=== PATIENT | male | born 1960 | race Caucasian/White ===

== ENCOUNTER 2024-03-15 04:52 | Emergency (ER) | payer OTHER, SELFPAY ==
[2024-03-15 04:54] VITALS: BP 166/98
[2024-03-15 05:38] VITALS: BP 151/95; BMI 25.0
--- NOTE | 2024-03-15 05:40 | EDRN ---
Pt says he developed poison vanessa on Friday. Friday morning he woke with swelling around 1 eye. This morning pt woke with swelling around both eyes. Arms, legs and eyes are itchy. Pt put lotion on his legs for itching. Pt did not take any
medications for symptoms. Pt speaks in full sentences. No sob, throat swelling.
[2024-03-15 07:02] VITALS: BP 149/96
--- NOTE | 2024-03-15 07:26 | ED.GENMED ---
History of Present Illness
General
Chief Complaint: Skin Problem
Source: patient
Exam Limitations: none
Time Seen by Provider: 03/15/24 06:32
Nursing documentation reviewed up to this point in time: agreed with
Travel History
Have you had any contact with someone who has COVID-19?: No
Do you have any symptoms of coronavirus? Fever > 100 degrees, chills, cough, shortness of breath, sore throat, loss of taste or smell, muscle aches, or headache?: No
History of Present Illness
History of Present Illness:
The patient is a pleasant 63-year-old man with a past medical history of high blood pressure who reports that he was working out in his garden 5 days ago and developed an itchy rash on both legs. Patient reports he thinks it is poison car[place]. Patient
grew concerned when he woke up yesterday with swelling of his left eyelids. When he woke up today, he had swelling of his right eyelids as well. Patient denies tightness of the throat, difficulty swallowing, shortness of breath or wheezing.
Patient reports he just feels very itchy around his eyes and legs. Patient admits that he was gardening with shorts on and should have worn pants.
Past History
Past History
ED Past Medical History: HTN
ED Past Surgical History: None
Social History
Tobacco: Non-smoker
Alcohol: None
Drug: None
Personal:
Living: with family
Employment: Employed
Family History
Family History: Other (Noncontributory)
Review of Systems
Review of Systems
Allergies reviewed?: Yes
All Other Systems: ROS reviewed and negative except as documented in HPI and ROS
Constitutional: Reports no symptoms
EENT: Reports other
Respiratory: Reports no symptoms
Cardiac: Reports no symptoms
ABD/GI: Reports no symptoms
: Reports no symptoms
Musculoskeletal: Reports no symptoms
Skin: Reports itching, rash and other
Neurological: Reports no symptoms
Endocrine: Reports no symptoms
Hematologic/Lymphatic: Reports no symptoms
Psychiatric: Reports no symptoms
Phy Exam
Physical Exam
Physical Exam:
Physical Exam
General: no apparent distress, not acutely ill
Neck: supple. No pharyngeal erythema or exudate. Significant swelling of lower eyelids bilaterally. Mild swelling of upper eyelids bilaterally. No lip or tongue swelling
Heart: s1/s2 regular rate and rhythm, no murmur. equal radial pulses.
Lungs: no acute respiratory distress. clear bilaterally
Abdomen: normal bowel sounds. not tender. no CVAT
Neuro: alert and oriented. no focal neurological deficits
Skin: Papular rash on anterior bilateral lower legs which appears to look like a contact dermatitis such as poison carlotta or poison [place].
Psychiatric: well kept. interactive and cooperative
Extremities: no edema. no calf tenderness. negative homans. good distal pulses
Course
Orders/Labs/Results
Orders:
Orders
03/15/24 07:24
Diphenhydramine [Benadryl] 50 mg PO NOW STA
03/15/24 07:25
Prednisone [Deltasone] 40 mg PO NOW STA
Vital Signs
Initial and Last Documented VS:
Initial Vital Signs
Temp Pulse Resp BP Pulse Ox
97.4 F 70 22 166/98 98
03/15/24 04:54 03/15/24 04:54 03/15/24 04:54 03/15/24 04:54 03/15/24 04:54
Last Documented Vital Signs
Temp Pulse Resp BP Pulse Ox
97.4 F 77 16 149/96 98
03/15/24 04:54 03/15/24 07:02 03/15/24 07:02 03/15/24 07:02 03/15/24 07:02
MDM/Problems Addressed
Differential Diagnosis Includes:
Acute contact dermatitis, angioedema, cellulitis
MDM/Problems Addressed:
Patient presents with acute itchy rash and acute swelling of bilateral eyelids
Chronic conditions affecting care: HTN
Acute Exacerbation and/or Progression of Chronic Illness: HTN
*Pulse Oximetry
Patient hypoxic: no
*Critical Care Note
Total Time (30-74mins, 75-104mins- exclusive of procedures): Not Applicable
Update Note
Update Note:
8:30 AM patient's eyelid swelling is significantly improved. He still has no sign of uvular swelling or pulmonary symptoms. Patient encouraged to take Benadryl every 6-8 hours while awake for the next several hours to days until symptoms go away.
Patient will be also started on steroids
ED Attending Note
-
Portions of this chart may have been created with voice recognition software.� Occasional wrong word or��sound alike� substitutions may have occurred due to the inherent limitations of voice recognition software.
Discharge Plan
Departure
Patient Disposition: Home (Routine Discharge)
Date of Disposition: 03/15/24
Time of Disposition: 08:47
Patient with high blood pressure during this ER visit?: Yes
Condition: Good
Covid-19: Not Applicable
Discharge Problem:
Allergic dermatitis due to poison carlot[place], Acute urticaria
Instructions: Allergic Reaction ED, Poison [place], Poison [place], Poison [place] [facility], BLOOD PRESSURE
Prescriptions:
New
prednisone 20 mg tablet
20 mg PO DAILY 5 Days Qty: 5 0RF
No Action
lisinopril 30 mg Tablet
30 mg PO DAILY
Referrals:
Fish Lee MD [Family Provider] -
Activity Restrictions/Additional Instructions:
Take 25 mg of Benadryl for any lingering itchiness or rash every 6-8 hours while awake. You can buy the Benadryl [id number] at a pharmacy. Do not drive or drink alcohol while using Benadryl. You should start the prednisone prescription
tomorrow morning.
Interventions
Interventions:
*Risk Screen - Suicide Last Done: 03/15/24 04:54
*General Assessment Last Done: 03/15/24 05:38
*Neglect/Abuse Screening Last Done: 03/15/24 04:54
*ED COVID-19 Vaccine History Last Done: 03/15/24 05:07
ED-Skin Assessment Last Done: 03/15/24 07:04
Discharge Date and Time
Print Language: MONGOLIAN
[2024-03-15] MEDS: BENADRYL 50 MG PO (07:35)
[2024-03-15] MEDS: DELTASONE 40 MG PO (07:35)
[2024-03-15 09:14] VITALS: BP 140/92
== END 2024-03-15 09:17 | disposition home or self-care (01) ==
LOC: EMR 04:52
PROVIDERS: EMERGENCY PHYSICIAN Emergency Medicine; FAMILY PHYSICIAN Family Medicine
DX: L23.7 Allergic contact dermatitis due to plants, except food (principal); H02.844 Edema of left upper eyelid; H02.841 Edema of right upper eyelid; R03.0 Elevated blood-pressure reading, without diagnosis of hypertension; I10 Essential (primary) hypertension; B02.9 Zoster without complications; Z86.16 Personal history of COVID-19
CPT/HCPCS: 99283